=== PATIENT | male | born 2000 | race Caucasian/White ===

== ENCOUNTER 2021-03-12 15:53 | Emergency (ER) | payer OTHER, SELFPAY ==
--- NOTE | 2021-03-12 17:02 | RAD REPORT ---
EXAM DESCRIPTION: RAD - Forearm Right - 03/12/2021 4:39 pm CLINICAL HISTORY: Right arm pain status post fall FINDINGS: No fracture is seen.
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
[2021-03-12 18:13] VITALS: TEMP 98.2
[2021-03-12 18:14] VITALS: BP 126/66; O2SAT 98
== END 2021-03-12 18:02 | disposition home or self-care (01) ==
LOC: ER 15:53
DX: S50.11XA Contusion of right forearm, initial encounter (principal)
CPT/HCPCS: 99283